=== PATIENT | female | born 2000 | race Caucasian/White ===

== ENCOUNTER 2025-05-04 19:46 | Observation (INO) | payer SELFPAY ==
[~2025-05-04 19:46] MED LIST: Iopamidol 370 76% 100 ML VIAL ONE
[2025-05-04 21:40] LABS: Bacteria/HPF None Seen HPF (None Seen); CAUTI Indications for Culture Dysuria,urgency,freq; Glucose, Urine (Dipstick) Normal (Negative); Leukocyte Negative Leu/uL (Negative); Protein, Urine (Dipstick) 20 mg/dL (Neg-Trace); RBC/HPF 0-3 HPF (0-3); Specific Gravity, Urine 1.027 (1.002-1.036); WBC/HPF 0-3 HPF (0-3)
[2025-05-04 21:45] LABS: #Basophils Less than 0.03 10x3/uL (0.0-0.2); #Eosinophils Less than 0.03 10x3/uL (0.0-0.7); #Monocytes 0.36 10x3/uL (0.11-0.59); #Neutrophils 9.21 10x3/uL (1.40-6.50); %Basophils 0.2 % (0.0-1.0); %Eosinophils 0.1 % (0.0-10.0); %Lymphocytes 7.3 % (21.0-51.0); %Monocytes 3.5 % (0.0-10.0); %Neutrophils 88.7 % (42.0-75.0); Hematocrit 40.0 % (36.0-47.0); Hemoglobin 13.5 g/dL (12.0-16.0); Mean Corpuscular Hemoglobin 29.2 pg (27.0-31.0); Mean Corpuscular Volume 86.4 fL (78.0-98.0); Platelet Count 250 10x3/uL (130-400); Red Blood Cell (RBC) Count 4.63 mill/uL (4.20-5.40); White Blood Cell (WBC) Count 10.38 10x3/uL (4.8-10.8)
[2025-05-04 21:57] LABS: Urine Culture Reflex No No
[2025-05-04 22:04] LABS: ALT (SGPT) 11 U/L (Less than 34); AST (SGOT) 28 U/L (11-34); Albumin 4.7 g/dL (3.1-4.5); Alkaline Phosphatase 55 U/L (40-110); Anion Gap 16 mmol/L (10-20); BUN (Urea Nitrogen) 11 mg/dL (7.0-18.7); Bilirubin, Total 0.5 mg/dL (0.3-1.2); Calc. Creatinine Clearance 0 mL/min (70-130); Calcium 9.1 mg/dL (7.8-10.44); Carbon Dioxide 24 mmol/L (22-29); Chloride 103 mmol/L (98-107); Globulin 2.9 g/dL (2.4-3.5); Glucose 113 mg/dL (70-105); Potassium 3.8 mmol/L (3.5-5.1); Sodium 139 mmol/L (136-145)
[2025-05-04 22:43] LABS: Lipase 19 U/L (8-78); Magnesium 2.1 mg/dL (1.6-2.6)
[2025-05-04] MEDS ORDERED: Ondansetron PF 4 MG/2 ML Vial ONE (22:55)
[2025-05-05 00:31] LABS: BHCG - Serum Negative (NEGATIVE); Pregs Control Background? CLEAR/WHITE (CLR/WHITE); Pregs Control Bar Appear? YES (CONTROL BAR)
[2025-05-05] MEDS ORDERED: hydrALAZINE 20 MG/ML VIAL SLOW IVP PRN (02:58)
[2025-05-05] MEDS ORDERED: Acetaminophen 325 MG TAB PO PRN (02:58)
[2025-05-05] MEDS ORDERED: Glucagon 1 MG/ML KIT IM PRN (02:58)
[2025-05-05] MEDS ORDERED: Dextrose 50% Abboject 50 ML SYRINGE SLOW IVP PRN (02:58)
[2025-05-05 04:44] VITALS: BMI 21.2
[2025-05-05] MEDS: Ondansetron PF 4 MG/2 ML Vial IVP PRN (06:35)
[2025-05-05 07:05] LABS: #Basophils Less than 0.03 10x3/uL (0.0-0.2); #Eosinophils Less than 0.03 10x3/uL (0.0-0.7); #Monocytes 0.65 10x3/uL (0.11-0.59); #Neutrophils 7.50 10x3/uL (1.40-6.50); %Basophils 0.2 % (0.0-1.0); %Eosinophils 0.0 % (0.0-10.0); %Lymphocytes 16.3 % (21.0-51.0); %Monocytes 6.6 % (0.0-10.0); %Neutrophils 76.6 % (42.0-75.0); Hematocrit 34.3 % (36.0-47.0); Hemoglobin 11.1 g/dL (12.0-16.0); Mean Corpuscular Hemoglobin 29.1 pg (27.0-31.0); Mean Corpuscular Volume 89.8 fL (78.0-98.0); Platelet Count 209 10x3/uL (130-400); Red Blood Cell (RBC) Count 3.82 mill/uL (4.20-5.40); White Blood Cell (WBC) Count 9.80 10x3/uL (4.8-10.8)
[2025-05-05 07:32] LABS: Anion Gap 14 mmol/L (10-20); BUN (Urea Nitrogen) 9 mg/dL (7.0-18.7); Calc. Creatinine Clearance 132 mL/min (70-130); Calcium 7.5 mg/dL (7.8-10.44); Carbon Dioxide 21 mmol/L (22-29); Chloride 110 mmol/L (98-107); Glucose 114 mg/dL (70-105); Potassium 3.7 mmol/L (3.5-5.1); Sodium 141 mmol/L (136-145)
[2025-05-05] MEDS ORDERED: Ondansetron PF 4 MG/2 ML Vial ONE (09:48)
[2025-05-05] MEDS ORDERED: Rocuronium Bromide 10 MG/ML (10ML VIAL) ONE (09:48)
[2025-05-05] MEDS ORDERED: PROPOFOL 20 ML ONE (09:48)
[2025-05-05] MEDS ORDERED: Lidocaine 1% PF 5 ML VIAL ONE (09:48)
[2025-05-05] MEDS ORDERED: fentaNYL PF 100 MCG/2 ML SYRINGE ONE (09:48)
[2025-05-05] MEDS ORDERED: Lidocaine 2% 6 ML (Jelly) SYR ONE (09:55)
[2025-05-05] MEDS ORDERED: Bupivacaine 0.25% HCL 30 ML VIAL ONE (10:03)
[2025-05-05] MEDS ORDERED: PHENYLEPHRINE-NS 100 MCG/ML 10 ML SYRINGE ONE (10:37)
[2025-05-05] MEDS ORDERED: SUGAMMADEX SODIUM 200 MG/2 ML VIAL ONE (11:10)
[2025-05-05] MEDS ORDERED: Glycopyrrolate 0.2 MG/ML 5 ML SYRINGE ONE (11:18)
[2025-05-06 05:54] LABS: #Basophils 0.03 10x3/uL (0.0-0.2); #Eosinophils Less than 0.03 10x3/uL (0.0-0.7); #Monocytes 0.65 10x3/uL (0.11-0.59); #Neutrophils 6.74 10x3/uL (1.40-6.50); %Basophils 0.3 % (0.0-1.0); %Eosinophils 0.0 % (0.0-10.0); %Lymphocytes 15.9 % (21.0-51.0); %Monocytes 7.3 % (0.0-10.0); %Neutrophils 76.3 % (42.0-75.0); Hematocrit 31.3 % (36.0-47.0); Hemoglobin 10.1 g/dL (12.0-16.0); Mean Corpuscular Hemoglobin 29.3 pg (27.0-31.0); Mean Corpuscular Volume 90.7 fL (78.0-98.0); Platelet Count 176 10x3/uL (130-400); Red Blood Cell (RBC) Count 3.45 mill/uL (4.20-5.40); White Blood Cell (WBC) Count 8.85 10x3/uL (4.8-10.8)
[2025-05-06 06:17] LABS: Anion Gap 10 mmol/L (10-20); BUN (Urea Nitrogen) 7 mg/dL (7.0-18.7); Calc. Creatinine Clearance 127 mL/min (70-130); Calcium 7.6 mg/dL (7.8-10.44); Carbon Dioxide 23 mmol/L (22-29); Chloride 111 mmol/L (98-107); Glucose 96 mg/dL (70-105); Potassium 3.4 mmol/L (3.5-5.1); Sodium 141 mmol/L (136-145)
[2025-05-06 13:18] VITALS: BP 99/57; TEMP 97.8
== END 2025-05-06 14:42 | disposition home or self-care (01) ==
LOC: ERS 19:46 → SURG B 05-05 03:01
PROVIDERS: ADMIT Surgery Trauma Surgery; ATTEND Surgery Trauma Surgery
PROC: 0DTJ4ZZ Resection of Appendix, Percutaneous Endoscopic Approach (ICD-10-PCS; principal; 2025-05-05)
DX: K35.80 Unspecified acute appendicitis (principal)
CPT/HCPCS: 36415; 36416; 74177; 80048; 80053; 81001; 83605; 83690; 83735; 84484; 84703; 85025; 88304; 93005; 93010; 96361; 96365; 96372; 96375; 96376; A4314; A4649; G0378; J0169; J0665; J1100; J2250; J2270; J2405; J2543; J2704; J7030; J7050; Q9967